=== PATIENT | female | born 1970 | race Caucasian/White ===

== ENCOUNTER 2016-12-12 00:20 | Inpatient (IN) | payer OTHER ==
[~2016-12-12] VITALS: Ht 167.6 cm; Wt 73.0 kg
[~2016-12-12 00:20] MED LIST: FLUO20CA19 PO; TOPI25TA32 PO
[2016-12-12] MEDS ORDERED: ONDANSETRON 2MG/ML, 2ML IVPush ONE (00:30)
[2016-12-12] MEDS ORDERED: SODIUM CHLORIDE 0.9% 1,000ML IVBOLUS ONE (00:30)
[2016-12-12] MEDS ORDERED: ONDANSETRON 2MG/ML, 2ML ONE ×2 (00:42→04:06)
[2016-12-12 00:55] LABS: HEMATOCRIT 39.5 % (34.6-47.8); HEMOGLOBIN 13.4 g/dL (11.7-16.4); WHITE BLOOD COUNT 5.9 x10^3/uL (3.4-10)
[2016-12-12 01:05] LABS: ASPARTATE AMINO TRANSFERASE 18 U/L (15-37); BLOOD UREA NITROGEN 15 mg/dL (7-18)
[2016-12-12 01:10] LABS: ACETAMINOPHEN < 2 mcg/mL (10-30)
[2016-12-12 01:41] LABS: DAU SCREEN DISCLAIMER
[2016-12-12] MEDS ORDERED: SODIUM CHLORIDE 0.9% 1,000 ML IV ONE (02:03)
[2016-12-12] MEDS ORDERED: NS + 40MEQ KCL 1,000 ML IV ONE (02:13)
[2016-12-12] MEDS ORDERED: DOCUSATE 100 MG CAPSULE PO PRN (02:30)
[2016-12-12] MEDS ORDERED: D5%-0.9% NACL+KCL 20MEQ 1,000 ML IV SCH (02:30)
[2016-12-12] MEDS ORDERED: MORPHINE SULFATE 4 MG/ML, 1ML IVPush PRN (02:30)
[2016-12-12] MEDS ORDERED: POTASSIUM CHLORIDE 40 MEQ in SODIUM CHLORIDE 0.9% 500 ML IV ONE (02:30)
[2016-12-12] MEDS ORDERED: POLYETHYLENE GLYCOL 17 GM PACKET PO PRN (02:30)
[2016-12-12] MEDS ORDERED: BISACODYL 10 MG SUPP PR PRN (02:30)
[2016-12-12] MEDS ORDERED: hydrALAzine 20 MG/ML, 1ML IVPush PRN (02:30)
[2016-12-12] MEDS ORDERED: HEPARIN 5,000 UNITS/ML, 1ML ONE (04:03)
[2016-12-12] MEDS: HEPARIN 5,000 UNITS/ML, 1ML SQ SCH ×3 (04:15→21:16)
[2016-12-12] MEDS: ONDANSETRON 2MG/ML, 2ML IVPush PRN ×3 (04:16→16:13)
[2016-12-12 06:45] VITALS: BP 138/83
[2016-12-12] MEDS ORDERED: TOPIRAMATE 25 MG TABLET PO SCH (09:00)
[2016-12-12] MEDS ORDERED: FLUOXETINE 20 MG CAPSULE PO SCH (09:00)
[2016-12-12 09:02] VITALS: BP 124/56
[2016-12-12 12:45] VITALS: BP 113/73
[2016-12-12] MEDS ORDERED: LORazepam 2 MG/ML, 1ML IVPush ONE (17:00)
[2016-12-12 19:55] VITALS: BP 110/66
[2016-12-13 01:48] VITALS: BP 109/70
[2016-12-13] MEDS: ONDANSETRON 2MG/ML, 2ML IVPush PRN ×3 (03:11→18:02)
[2016-12-13 05:33] LABS: BLOOD UREA NITROGEN 9 mg/dL (7-18)
[2016-12-13 05:41] LABS: ASPARTATE AMINO TRANSFERASE 12 U/L (15-37)
[2016-12-13] MEDS: HEPARIN 5,000 UNITS/ML, 1ML SQ SCH ×2 (06:02→13:15)
[2016-12-13 06:04] LABS: HEMOGLOBIN 11.6 g/dL (11.7-16.4); WHITE BLOOD COUNT 8.1 x10^3/uL (3.4-10)
[2016-12-13] MEDS ORDERED: POTASSIUM CHLORIDE 40 MEQ in SODIUM CHLORIDE 0.9% 500 ML IV ONE (07:00)
[2016-12-13 08:25] VITALS: BP 95/58
[2016-12-13] MEDS: ACETAMINOPHEN 325 MG TABLET PO PRN (09:51)
[2016-12-13] MEDS: TOPIRAMATE 100 MG TABLET PO SCH ×2 (09:52→20:10)
[2016-12-13] MEDS: FLUOXETINE 20 MG CAPSULE PO SCH (09:52)
[2016-12-13] MEDS ORDERED: IBUPROFEN 200 MG TABLET PO ONE (12:30)
[2016-12-13 13:13] VITALS: BP 114/74
[2016-12-13] MEDS ORDERED: LORazepam 2 MG/ML, 1ML IVPush ONE (14:30)
[2016-12-13 19:56] VITALS: BP 148/92
[2016-12-13] MEDS: PROMETHAZINE 25 MG/ML, 1ML IM PRN (20:05)
[2016-12-14 00:09] VITALS: BP 110/69
[2016-12-14] MEDS: PROMETHAZINE 25 MG/ML, 1ML IM PRN ×4 (00:18→22:23)
[2016-12-14] MEDS: HEPARIN 5,000 UNITS/ML, 1ML SQ SCH ×4 (00:18→21:53)
[2016-12-14 02:34] VITALS: BP 140/84
[2016-12-14 05:46] LABS: BLOOD UREA NITROGEN 8 mg/dL (7-18)
[2016-12-14 08:20] VITALS: BP 123/81
[2016-12-14] MEDS: POTASSIUM CHLORIDE 20 MEQ TAB.ER.PRT PO SCH ×2 (08:59→16:33)
[2016-12-14] MEDS: FLUOXETINE 20 MG CAPSULE PO SCH (09:00)
[2016-12-14] MEDS: TOPIRAMATE 100 MG TABLET PO SCH ×2 (09:02→21:43)
[2016-12-14] MEDS: ACETAMINOPHEN 325 MG TABLET PO PRN (09:05)
[2016-12-14] MEDS ORDERED: BISACODYL 10 MG SUPP PR PRN (11:00)
[2016-12-14 11:14] VITALS: BP 128/81
[2016-12-14] MEDS: POTASSIUM CHLORIDE 40 MEQ in SODIUM CHLORIDE 0.45% 1,000 ML IV SCH ×2 (11:26→21:55)
[2016-12-14 14:00] VITALS: BP 130/73
[2016-12-14] MEDS: LORazepam 2 MG/ML, 1ML IVPush PRN (17:21)
[2016-12-14 21:58] VITALS: BP 133/88
[2016-12-15 01:40] VITALS: BP 114/73
[2016-12-15] MEDS: HEPARIN 5,000 UNITS/ML, 1ML SQ SCH ×3 (05:45→20:59)
[2016-12-15] MEDS: POTASSIUM CHLORIDE 40 MEQ in SODIUM CHLORIDE 0.45% 1,000 ML IV SCH (05:45)
[2016-12-15] MEDS: PROMETHAZINE 25 MG/ML, 1ML IM PRN ×2 (08:12→17:21)
[2016-12-15] MEDS: ACETAMINOPHEN 325 MG TABLET PO PRN (08:12)
[2016-12-15 08:23] LABS: BLOOD UREA NITROGEN 6 mg/dL (7-18)
[2016-12-15 08:29] VITALS: BP 117/81
[2016-12-15] MEDS: POTASSIUM CHLORIDE 20 MEQ TAB.ER.PRT PO SCH (10:29)
[2016-12-15] MEDS: FLUOXETINE 20 MG CAPSULE PO SCH (10:29)
[2016-12-15] MEDS: LORazepam 2 MG/ML, 1ML IVPush PRN ×2 (10:58→19:31)
[2016-12-15] MEDS: TOPIRAMATE 100 MG TABLET PO SCH ×2 (10:59→20:59)
[2016-12-15 13:28] VITALS: BP 110/73
[2016-12-15 19:41] VITALS: BP 115/74
[2016-12-16 00:55] VITALS: BP 102/72
[2016-12-16] MEDS: PROMETHAZINE 25 MG/ML, 1ML IM PRN (01:43)
[2016-12-16] MEDS: LORazepam 2 MG/ML, 1ML IVPush PRN ×2 (02:25→14:28)
[2016-12-16] MEDS: HEPARIN 5,000 UNITS/ML, 1ML SQ SCH (05:16)
[2016-12-16 06:38] VITALS: BP 125/91
[2016-12-16 06:50] LABS: BLOOD UREA NITROGEN 8 mg/dL (7-18)
[2016-12-16] MEDS: ONDANSETRON 2MG/ML, 2ML IVPush PRN (09:58)
[2016-12-16] MEDS: TOPIRAMATE 100 MG TABLET PO SCH ×2 (09:58→20:11)
[2016-12-16] MEDS: FLUOXETINE 20 MG CAPSULE PO SCH (09:59)
[2016-12-16 12:33] VITALS: BP 110/80
[2016-12-16] MEDS: ONDANSETRON 4 MG TABLET PO PRN ×2 (13:21→20:11)
[2016-12-16 17:57] VITALS: BP 120/82
[2016-12-16 19:30] VITALS: BP 112/77
[2016-12-16] MEDS: LORazepam 0.5MG TABLET PO PRN (21:52)
[2016-12-17] MEDS: LORazepam 0.5MG TABLET PO PRN ×3 (04:15→18:00)
[2016-12-17 04:17] VITALS: BP 110/60
[2016-12-17] MEDS ORDERED: CALCIUM CARBONATE 500 MG TAB.CHEW PO PRN (07:30)
[2016-12-17 08:38] VITALS: BP 108/77
[2016-12-17] MEDS: FLUOXETINE 20 MG CAPSULE PO SCH (09:21)
[2016-12-17] MEDS: TOPIRAMATE 100 MG TABLET PO SCH ×2 (09:22→21:10)
[2016-12-17] MEDS: ONDANSETRON 4 MG TABLET PO PRN ×2 (09:25→18:00)
[2016-12-17 14:05] VITALS: BP 90/60
[2016-12-17] MEDS: ACETAMINOPHEN 325 MG TABLET PO PRN (18:00)
[2016-12-17 19:41] VITALS: BP 96/61
[2016-12-18] MEDS: LORazepam 0.5MG TABLET PO PRN ×2 (03:22→09:17)
[2016-12-18 08:00] VITALS: BP 125/84
[2016-12-18] MEDS: TOPIRAMATE 100 MG TABLET PO SCH (09:16)
[2016-12-18] MEDS: FLUOXETINE 20 MG CAPSULE PO SCH (09:17)
== END 2016-12-18 11:00 | DRG 918 ==
LOC: ED 01:29 → EDIP 02:09 → 5SO 06:42 → 4EST 12-14 21:10 → 4WST 12-14 21:27 → 3E 12-16 17:52
PROVIDERS: ADMIT Internal Medicine; ATTEND Internal Medicine
DX: T43.212A Poisoning by selective serotonin and norepinephrine reuptake inhibitors, intentional self-harm, initial encounter (principal); E87.2 Acidosis; R45.851 Suicidal ideations; E87.6 Hypokalemia; F12.10 Cannabis abuse, uncomplicated; R00.0 Tachycardia, unspecified; F32.9 Major depressive disorder, single episode, unspecified; F41.9 Anxiety disorder, unspecified; G40.909 Epilepsy, unspecified, not intractable, without status epilepticus; Z91.5 Personal history of self-harm; Y92.89 Other specified places as the place of occurrence of the external cause; Z90.49 Acquired absence of other specified parts of digestive tract; Z90.89 Acquired absence of other organs; Z90.710 Acquired absence of both cervix and uterus
CPT/HCPCS: 36415; 71010; 74000; 80048; 80053; 80307; 80329; 81001; 83036; 83735; 84439; 84443; 84703; 85025; 87086; 93005; 96361; 96374; 96375; J1644; J2405; J2550; J3480; Q0162; G0479; G0480; J2060; J7030; J7040